=== PATIENT | male | born 1945 | race African-American/Black ===

== ENCOUNTER 2023-09-07 17:47 | Inpatient (IN) | payer MEDICARE, OTHER ==
[~2023-09-07] VITALS: Ht 185.4 cm; Wt 88.5 kg
[2023-09-07] MEDS: IV NS 0.9% 1,000 ML BAG IV ONE (18:20)
[2023-09-07 18:25] LABS: BASOPHILS % (AUTO) 0.9 % (0.0-2.0); EOSINOPHILS # (AUTO) 0.3 K/uL (0.0-0.7); HEMATOCRIT 36 % (39-51); HEMOGLOBIN 11.9 g/dL (13.5-17.5); LYMPHOCYTES # (AUTO) 1.2 K/uL (0.8-4.8); LYMPHOCYTES % (AUTO) 22.2 % (20.0-44.0); MEAN CORPUSCULAR HEMOGLOBIN 29 PG (26.0-33.0); MEAN CORPUSCULAR HGB CONC 33 g/dl (31.0-36.0); MEAN CORPUSCULAR VOLUME 87 fL (80-96); MONOCYTES # (AUTO) 0.9 K/uL (0.1-1.30); MONOCYTES % (AUTO) 16.4 % (2.0-12.0); NEUTROPHILS % (AUTO) 55.5 % (43.0-81.0); PLATELET COUNT (AUTO) 134 K/uL (150-450); RED BLOOD CELL COUNT(AUTO) 4.11 MIL/uL (4.5-6.0); RED CELL DISTRIBUTION WIDTH 15.2 % (11.5-15.0); WHITE BLOOD COUNT (AUTO) 5.4 K/uL (4.3-11.0)
[2023-09-07 18:42] LABS: INR 1.08 (0.91-1.10); PARTIAL THROMBOPLASTIN TIME 27.1 SEC (24.3-34.3); PROTHROMBIN TIME 11.4 SECS (9.2-11.1)
[2023-09-07 18:43] LABS: ALANINE AMINOTRANSFERASE 74 U/L (12-78); ALBUMIN 2.7 g/dL (3.4-5.0); ALKALINE PHOSPHATASE 217 U/L (46-116); ASPARTATE AMINOTRANSFERASE 45 U/L (15-37); BILIRUBIN,DIRECT 0.4 mg/dL (0.0-0.2); BILIRUBIN,TOTAL 0.8 mg/dL (0.2-1.0); CALCIUM, SERUM 9.2 mg/dL (8.5-10.1); CARBON DIOXIDE 27 mmol/L (21-32); CHLORIDE 100 mmol/L (98-107); CREATININE 1.4 mg/dL (0.6-1.3); GLUCOSE 152 mg/dL (74-106); POTASSIUM 4.4 mmol/L (3.5-5.1); SODIUM SERUM 134 mmol/L (136-145); TOTAL PROTEIN, SERUM 8.1 g/dL (6.4-8.2); UREA NITROGEN, BLOOD 22 mg/dL (7-18)
[2023-09-07 18:59] LABS: EOSINOPHILS % (MANUAL) 3 % (0-4); LYMPHOCYTES % (MANUAL) 26 % (16-48); MONOCYTES % (MANUAL) 11 % (0-11.0); NEUTROPHILS % (MANUAL) 60 (42-76)
[2023-09-07 19:00] LABS: ANISOCYTOSIS 1+; PLATELET ESTIMATE ADEQUATE
[2023-09-07] MEDS ORDERED: PANT40TA49 PO (19:04)
[2023-09-07] MEDS ORDERED: POTA10TA10 PO (19:04)
[2023-09-07] MEDS ORDERED: ATOR40TA PO (19:04)
[2023-09-07] MEDS ORDERED: ACET325T53 PO (19:04)
[2023-09-07] MEDS ORDERED: ASPI-1169 PO (19:04)
[2023-09-07] MEDS ORDERED: TAMS-12 PO (19:04)
[2023-09-07] MEDS ORDERED: SPIR25TA6 PO (19:04)
[2023-09-07] MEDS ORDERED: MAGN400O6 PO (19:04)
[2023-09-07] MEDS ORDERED: APIX5TAB PO (19:04)
[2023-09-07] MEDS ORDERED: LOSA25TA27 PO (19:04)
[2023-09-07] MEDS ORDERED: METO-358 PO (19:04)
[2023-09-07] MEDS ORDERED: FURO20TA4 PO (19:04)
[2023-09-07] MEDS ORDERED: CHOL100062 PO (19:04)
[2023-09-07] MEDS ORDERED: HEPA50008 SQ (19:04)
[2023-09-07] MEDS ORDERED: NALO4SPR NS (19:04)
[2023-09-07] MEDS ORDERED: DOCU100C36 PO (19:04)
[2023-09-07 20:05] VITALS: BP 114/79; TEMP 98.6; O2SAT 99
[2023-09-07] MEDS ORDERED: ONDANSETRON HCL/PF 4 MG/2 ML VIAL IVP PRN (21:30)
[2023-09-07] MEDS ORDERED: Z GUARD REMEDY 4 OZ OINT TP PRN (21:30)
[2023-09-07] MEDS ORDERED: ZOLPIDEM TARTRATE 5 MG TABLET PO PRN (21:30)
[2023-09-07] MEDS ORDERED: ACETAMINOPHEN 325 MG TABLET PO PRN (21:30)
[2023-09-07] MEDS ORDERED: MAGNESIUM HYDROXIDE 30 ML UDC PO PRN ×2 (21:30→23:00)
[2023-09-07] MEDS ORDERED: MAG HYDROX/AL HYDROX/SIMETH 30 ML UDC PO PRN (21:30)
[2023-09-07] MEDS: ENOXAPARIN SODIUM 40 MG/0.4 ML DISP.SYRIN SQ SCH (21:54)
[2023-09-07] MEDS ORDERED: HEPARIN SODIUM, PORCINE 5000 UNITS/1 ML VIAL SQ SCH (23:00)
[2023-09-07] MEDS ORDERED: NALOXONE HCL 4 MG SPRAY NS PRN (23:00)
[2023-09-07] MEDS: ATORVASTATIN 40 MG TABLET PO SCH (23:46)
[2023-09-07] MEDS: TAMSULOSIN 0.4 MG CAP.SR.24H PO SCH (23:46)
[2023-09-08] VITALS: BP 102/73; TEMP 98.3; O2SAT 98
[2023-09-08 04:00] VITALS: BP 104/79; TEMP 98.1; O2SAT 99
[2023-09-08 07:27] LABS: BASOPHILS % (AUTO) 0.8 % (0.0-2.0); EOSINOPHILS # (AUTO) 0.3 K/uL (0.0-0.7); EOSINOPHILS % (AUTO) 5.8 % (0.0-6.0); HEMATOCRIT 35 % (39-51); HEMOGLOBIN 11.8 g/dL (13.5-17.5); LYMPHOCYTES # (AUTO) 1.3 K/uL (0.8-4.8); LYMPHOCYTES % (AUTO) 27.4 % (20.0-44.0); MEAN CORPUSCULAR HEMOGLOBIN 29 PG (26.0-33.0); MEAN CORPUSCULAR HGB CONC 34 g/dl (31.0-36.0); MEAN CORPUSCULAR VOLUME 86 fL (80-96); MONOCYTES # (AUTO) 0.8 K/uL (0.1-1.30); MONOCYTES % (AUTO) 17.1 % (2.0-12.0); NEUTROPHILS # (AUTO) 2.3 K/uL (1.8-8.9); NEUTROPHILS % (AUTO) 48.9 % (43.0-81.0); PLATELET COUNT (AUTO) 134 K/uL (150-450); RED BLOOD CELL COUNT(AUTO) 4.06 MIL/uL (4.5-6.0); RED CELL DISTRIBUTION WIDTH 15.1 % (11.5-15.0); WHITE BLOOD COUNT (AUTO) 4.6 K/uL (4.3-11.0)
[2023-09-08 08:00] VITALS: BP 95/65; TEMP 98.4; O2SAT 99
[2023-09-08 08:33] LABS: ALBUMIN 2.6 g/dL (3.4-5.0); BILIRUBIN,DIRECT 0.4 mg/dL (0.0-0.2); BILIRUBIN,TOTAL 1.1 mg/dL (0.2-1.0); CALCIUM, SERUM 9.6 mg/dL (8.5-10.1); PHOSPHORUS 3.4 mg/dL (2.5-4.9); POTASSIUM 4.1 mmol/L (3.5-5.1); TOTAL PROTEIN, SERUM 7.8 g/dL (6.4-8.2)
[2023-09-08 08:43] LABS: CREATININE 1.3 mg/dL (0.6-1.3)
[2023-09-08 08:44] LABS: THYROID STIMULATING HORMONE 2.84 uIU/mL (0.358-3.74)
[2023-09-08] MEDS ORDERED: PANTOPRAZOLE 40 MG TABLET.DR PO SCH (09:00)
[2023-09-08] MEDS: LOSARTAN POTASSIUM 25 MG TABLET PO SCH (09:00)
[2023-09-08] MEDS: METOPROLOL SUCCINATE 50 MG TAB.SR.24H PO SCH (09:00)
[2023-09-08] MEDS: DOCUSATE SODIUM 100 MG CAPSULE PO SCH (09:40)
[2023-09-08] MEDS: FUROSEMIDE 20 MG TABLET PO SCH (09:40)
[2023-09-08] MEDS: ASPIRIN 81 MG TAB.CHEW PO SCH (09:41)
[2023-09-08] MEDS: POTASSIUM CHLORIDE 10 MEQ TABLET.SA PO SCH (09:41)
[2023-09-08] MEDS: CHOLECALCIFEROL 1,000 UNIT TABLET (VIT D3) PO SCH (09:41)
[2023-09-08] MEDS: PANTOPRAZOLE 40 MG TABLET.DR PO SCH (09:46)
[2023-09-08] MEDS: SPIRONOLACTONE 25 MG TABLET PO SCH (09:46)
[2023-09-08] MEDS: APIXABAN 5 MG TABLET PO SCH (11:48)
[2023-09-08 12:00] VITALS: BP 116/79; TEMP 98.8; O2SAT 99
[2023-09-08 12:44] LABS: ANISOCYTOSIS 1+; BASOPHILS % (MANUAL) 0 % (0.0-2.0); EOSINOPHILS % (MANUAL) 5 % (0-4); LYMPHOCYTES % (MANUAL) 23 % (16-48); MONOCYTES % (MANUAL) 17 % (0-11.0); NEUTROPHILS % (MANUAL) 55 (42-76); PLATELET ESTIMATE DECREASED
[2023-09-08] MEDS: AMIODARONE 150 MG in IV D5W 100 ML IV ONE (15:11)
[2023-09-08] MEDS: AMIODARONE 450 MG in IV D5W 241 ML IV PRN (15:54)
[2023-09-08 16:00] VITALS: BP 105/74; TEMP 97.8; O2SAT 99
[2023-09-08] MEDS: FUROSEMIDE 20 MG/2 ML VIAL IV SCH (17:35)
[2023-09-08 18:48] LABS: APPEARANCE,URINE CLEAR (CLEAR); BILIRUBIN,URINE NEGATIVE (NEGATIVE); BLOOD, URINE TRACE-INTA Ery/uL (NEGATIVE); COLOR,URINE YELLOW (YELLOW); KETONES,URINE NEGATIVE (NEGATIVE); LEUKOCYTE ESTERASE ,URINE NEGATIVE (NEGATIVE); NITRITE, URINE NEGATIVE (NEGATIVE); PH,URINE 6.5 (5.0-8.0); PROTEIN,URINE NEGATIVE (NEGATIVE); UGLUCOSE NEGATIVE (NEGATIVE); UROBILINOGEN,URINE 0.2 EU/dL (0.2)
[2023-09-08 19:15] LABS: ADD URINE CULTURE NO; BACTERIA,URINE Few /HPF (None Seen); RBC,URINE 0-2 /HPF (0-2); SQUAMOUS EPITHELIAL CELL,UR Few /HPF (None Seen); WBC,URINE 0-2 /HPF (0-3)
[2023-09-08 19:44] LABS: EOSINOPHIL,URINE None Seen
[2023-09-08 20:00] VITALS: BP 108/76; TEMP 98; O2SAT 99
[2023-09-09] VITALS: BP 104/78; TEMP 98.5; O2SAT 99
[2023-09-09 04:00] VITALS: BP 102/72; TEMP 98.3; O2SAT 100
[2023-09-09 08:00] VITALS: BP 105/78; TEMP 97.9; O2SAT 100
[2023-09-09 12:00] VITALS: BP 99/71; TEMP 98.8; O2SAT 97
[2023-09-09 16:00] VITALS: BP 99/71; TEMP 99; O2SAT 97
[2023-09-09] MEDS: AMIODARONE HCL 200 MG TABLET PO SCH (17:18)
[2023-09-09 20:00] VITALS: BP 105/70; TEMP 98.5; O2SAT 98
[2023-09-10] VITALS: BP 99/75; TEMP 98.1; O2SAT 98
[2023-09-10 04:00] VITALS: BP 98/70; TEMP 98; O2SAT 96
[2023-09-10 06:51] LABS: BASOPHILS % (AUTO) 0.7 % (0.0-2.0); EOSINOPHILS # (AUTO) 0.3 K/uL (0.0-0.7); EOSINOPHILS % (AUTO) 5.4 % (0.0-6.0); HEMATOCRIT 36 % (39-51); HEMOGLOBIN 12.2 g/dL (13.5-17.5); LYMPHOCYTES # (AUTO) 1.5 K/uL (0.8-4.8); LYMPHOCYTES % (AUTO) 25.1 % (20.0-44.0); MEAN CORPUSCULAR HEMOGLOBIN 29 PG (26.0-33.0); MEAN CORPUSCULAR HGB CONC 34 g/dl (31.0-36.0); MEAN CORPUSCULAR VOLUME 86 fL (80-96); MONOCYTES % (AUTO) 16.8 % (2.0-12.0); NEUTROPHILS # (AUTO) 3.1 K/uL (1.8-8.9); PLATELET COUNT (AUTO) 142 K/uL (150-450); RED BLOOD CELL COUNT(AUTO) 4.21 MIL/uL (4.5-6.0); RED CELL DISTRIBUTION WIDTH 15.2 % (11.5-15.0)
[2023-09-10 07:23] LABS: ALANINE AMINOTRANSFERASE 78 U/L (12-78); ALBUMIN 2.8 g/dL (3.4-5.0); ALKALINE PHOSPHATASE 225 U/L (46-116); ASPARTATE AMINOTRANSFERASE 45 U/L (15-37); CALCIUM, SERUM 10.2 mg/dL (8.5-10.1); CARBON DIOXIDE 27 mmol/L (21-32); CHLORIDE 99 mmol/L (98-107); CREATININE 1.4 mg/dL (0.6-1.3); GLUCOSE 107 mg/dL (74-106); MAGNESIUM 1.8 mg/dL (1.8-2.4); PHOSPHORUS 3.7 mg/dL (2.5-4.9); POTASSIUM 4.2 mmol/L (3.5-5.1); SODIUM SERUM 134 mmol/L (136-145); TOTAL PROTEIN, SERUM 8.2 g/dL (6.4-8.2); UREA NITROGEN, BLOOD 21 mg/dL (7-18)
[2023-09-10 08:00] VITALS: BP 103/67; TEMP 97.9; O2SAT 98
[2023-09-10] MEDS: FUROSEMIDE 40 MG/4 ML VIAL IV SCH (08:29)
[2023-09-10] MEDS ORDERED: AMIODARONE HCL 200 MG TABLET PO SCH (09:00)
[2023-09-10 12:00] VITALS: BP 97/67; TEMP 97.3; O2SAT 98
[2023-09-10 16:00] VITALS: BP 90/63; TEMP 98.6; O2SAT 98
[2023-09-10 20:00] VITALS: BP 94/72; TEMP 98.4; O2SAT 96
[2023-09-11] VITALS: BP 97/63; TEMP 98.2; O2SAT 96
[2023-09-11 04:00] VITALS: BP 112/74; TEMP 98.1; O2SAT 99
[2023-09-11 07:05] LABS: BASOPHILS % (AUTO) 0.7 % (0.0-2.0); EOSINOPHILS # (AUTO) 0.3 K/uL (0.0-0.7); EOSINOPHILS % (AUTO) 5.7 % (0.0-6.0); HEMATOCRIT 37 % (39-51); HEMOGLOBIN 12.5 g/dL (13.5-17.5); LYMPHOCYTES # (AUTO) 1.4 K/uL (0.8-4.8); LYMPHOCYTES % (AUTO) 22.8 % (20.0-44.0); MEAN CORPUSCULAR HEMOGLOBIN 29 PG (26.0-33.0); MEAN CORPUSCULAR HGB CONC 34 g/dl (31.0-36.0); MEAN CORPUSCULAR VOLUME 86 fL (80-96); MONOCYTES % (AUTO) 15.9 % (2.0-12.0); NEUTROPHILS # (AUTO) 3.4 K/uL (1.8-8.9); NEUTROPHILS % (AUTO) 54.9 % (43.0-81.0); PLATELET COUNT (AUTO) 161 K/uL (150-450); RED BLOOD CELL COUNT(AUTO) 4.25 MIL/uL (4.5-6.0); RED CELL DISTRIBUTION WIDTH 14.4 % (11.5-15.0); WHITE BLOOD COUNT (AUTO) 6.2 K/uL (4.3-11.0)
[2023-09-11 07:40] LABS: ALANINE AMINOTRANSFERASE 83 U/L (12-78); ALBUMIN 2.7 g/dL (3.4-5.0); ALKALINE PHOSPHATASE 232 U/L (46-116); ASPARTATE AMINOTRANSFERASE 49 U/L (15-37); CALCIUM, SERUM 9.8 mg/dL (8.5-10.1); CARBON DIOXIDE 26 mmol/L (21-32); CHLORIDE 96 mmol/L (98-107); CREATININE 1.6 mg/dL (0.6-1.3); GLUCOSE 109 mg/dL (74-106); PHOSPHORUS 4.1 mg/dL (2.5-4.9); POTASSIUM 4.5 mmol/L (3.5-5.1); SODIUM SERUM 133 mmol/L (136-145); TOTAL PROTEIN, SERUM 8.3 g/dL (6.4-8.2); UREA NITROGEN, BLOOD 33 mg/dL (7-18)
[2023-09-11 08:00] VITALS: BP 91/66; TEMP 97.9; O2SAT 95
[2023-09-11] MEDS: FUROSEMIDE 40 MG TABLET PO SCH (08:42)
[2023-09-11 12:00] VITALS: BP 111/83; TEMP 97.8; O2SAT 98
[2023-09-11 16:00] VITALS: BP 92/59; TEMP 97.9; O2SAT 98
[2023-09-11 20:00] VITALS: BP 95/69; TEMP 98; O2SAT 100
[2023-09-12] VITALS: BP 101/72; TEMP 95; O2SAT 95
[2023-09-12 04:00] VITALS: BP 105/68; TEMP 98.1; O2SAT 98
[2023-09-12 06:43] LABS: BASOPHILS % (AUTO) 0.5 % (0.0-2.0); EOSINOPHILS # (AUTO) 0.4 K/uL (0.0-0.7); EOSINOPHILS % (AUTO) 6.5 % (0.0-6.0); HEMATOCRIT 36 % (39-51); HEMOGLOBIN 12.5 g/dL (13.5-17.5); LYMPHOCYTES # (AUTO) 1.2 K/uL (0.8-4.8); LYMPHOCYTES % (AUTO) 20.1 % (20.0-44.0); MEAN CORPUSCULAR HEMOGLOBIN 29 PG (26.0-33.0); MEAN CORPUSCULAR HGB CONC 35 g/dl (31.0-36.0); MEAN CORPUSCULAR VOLUME 85 fL (80-96); MONOCYTES # (AUTO) 0.9 K/uL (0.1-1.30); MONOCYTES % (AUTO) 15.2 % (2.0-12.0); NEUTROPHILS # (AUTO) 3.4 K/uL (1.8-8.9); NEUTROPHILS % (AUTO) 57.7 % (43.0-81.0); PLATELET COUNT (AUTO) 164 K/uL (150-450); RED BLOOD CELL COUNT(AUTO) 4.24 MIL/uL (4.5-6.0); RED CELL DISTRIBUTION WIDTH 15.1 % (11.5-15.0)
[2023-09-12 07:17] LABS: ALANINE AMINOTRANSFERASE 79 U/L (12-78); ALBUMIN 2.7 g/dL (3.4-5.0); ALKALINE PHOSPHATASE 240 U/L (46-116); ASPARTATE AMINOTRANSFERASE 41 U/L (15-37); BILIRUBIN,TOTAL 1.2 mg/dL (0.2-1.0); CARBON DIOXIDE 25 mmol/L (21-32); CHLORIDE 97 mmol/L (98-107); CREATININE 1.5 mg/dL (0.6-1.3); GLUCOSE 113 mg/dL (74-106); MAGNESIUM 2.2 mg/dL (1.8-2.4); PHOSPHORUS 3.6 mg/dL (2.5-4.9); POTASSIUM 4.4 mmol/L (3.5-5.1); SODIUM SERUM 134 mmol/L (136-145); TOTAL PROTEIN, SERUM 8.5 g/dL (6.4-8.2); UREA NITROGEN, BLOOD 33 mg/dL (7-18)
[2023-09-12 08:00] VITALS: BP 107/81; TEMP 97.9; O2SAT 98
[2023-09-12 09:28] LABS: EOSINOPHILS % (MANUAL) 4 % (0-4); LYMPHOCYTES % (MANUAL) 27 % (16-48); MONOCYTES % (MANUAL) 9 % (0-11.0); NEUTROPHILS % (MANUAL) 60 (42-76)
[2023-09-12 09:29] LABS: ANISOCYTOSIS 1+; PLATELET ESTIMATE ADEQUATE
[2023-09-12] MEDS ORDERED: AMIO200T7 PO (11:52)
[2023-09-12] MEDS ORDERED: FURO40TA5 PO (11:52)
[2023-09-12 12:00] VITALS: BP 98/72; TEMP 97.5; O2SAT 97
[2023-09-12 16:00] VITALS: BP 99/72; TEMP 98.4; O2SAT 98
[2023-09-13] MEDS ORDERED: METOPROLOL SUCCINATE 50 MG TAB.SR.24H PO SCH (09:00)
== END 2023-09-12 17:45 | DRG 308 ==
LOC: ER 18:29 → TELE 19:33 → TELE1 19:43 → TELE-TD 09-08 15:00 → TELE1 09-10 10:51
PROVIDERS: ADMIT Nurse Practitioner Family; ATTEND Internal Medicine
DX: I48.91 Unspecified atrial fibrillation (principal); I50.23 Acute on chronic systolic (congestive) heart failure; I13.0 Hypertensive heart and chronic kidney disease with heart failure and stage 1 through stage 4 chronic kidney disease, or unspecified chronic kidney disease; E87.1 Hypo-osmolality and hyponatremia; N17.9 Acute kidney failure, unspecified; J90 Pleural effusion, not elsewhere classified; K21.9 Gastro-esophageal reflux disease without esophagitis; E86.0 Dehydration; N18.9 Chronic kidney disease, unspecified; D64.9 Anemia, unspecified; E78.5 Hyperlipidemia, unspecified; I42.9 Cardiomyopathy, unspecified; I47.10 Supraventricular tachycardia, unspecified; M89.8X9 Other specified disorders of bone, unspecified site; N40.0 Benign prostatic hyperplasia without lower urinary tract symptoms; Z79.01 Long term (current) use of anticoagulants; Z79.82 Long term (current) use of aspirin; Z95.2 Presence of prosthetic heart valve; Z20.822 Contact with and (suspected) exposure to COVID-19
CPT/HCPCS: 36415; 70450-TC; 71045-TC; 76770-TC; 80048-TC; 80053-TC; 80076-TC; 81001; 83735-TC; 83880; 84100-TC; 84443-TC; 84484-TC; 85025-TC; 85730-TC; 93307-TC; 93880-TC; A4223; G0378; J0282; J1650; J1940; J7030; J7050; J7060